=== PATIENT | male | born 1960 | race Caucasian/White ===

== ENCOUNTER → 2016-06-05 | Outpatient (CLI) | payer OTHER ==
[~2016-06-05] MED LIST: ASPIRIN 32325 MG/TAB PO; ZESTRIL 10MG10 MG PO
== END ==
LOC: COL.RAD 07:09
DX: Z01.818 Encounter for other preprocedural examination (principal); M17.12 Unilateral primary osteoarthritis, left knee

== ENCOUNTER → 2016-08-04 | Outpatient (CLI) | payer OTHER | LOC: COL.LAB 09:58 | DX: Z96.652 Presence of left artificial knee joint (principal) ==

== ENCOUNTER → 2018-09-08 | Outpatient (CLI) | payer BC ==
[~2018-09-08] VITALS: Ht 185.4 cm; Wt 152.4 kg
[~2018-09-08] MED LIST changes: +LIPITOR20 MG PO
[2018-09-08 09:30] VITALS: BP 140/98; PULSE 72
[2018-09-08 10:41] VITALS: BP 153/92; PULSE 74
--- NOTE | 2018-09-08 11:14 | NUR ---
PT AND FRIEND TAKEN DOWNSTAIRS AND LEFT IN POV
== END ==
LOC: COL.RAD 09:06
DX: E04.1 Nontoxic single thyroid nodule (principal)